=== PATIENT | female | born 1945 | race Caucasian/White ===

== ENCOUNTER → 2016-07-22 | Outpatient (CLI) | payer OTHER ==
[~2016-07-22] MED LIST: AMBIEN PO; ASPIRIN PO; CENTRUM SILVER PO; CIPRO PO; CLARINEX5 MG PO; DARVOCET-N 1001 TA1; DARVOCET-N 1001 TAB; DIGITEK PO; ENDOCET 10-3251 TAB PO; ENDOCET PO; ESTRACE42.5 GM VG; FLAXSEED OIL1000 M1 PO; GELNIQUE30 GM TD; GLUCOPHAGE500 MG PO; LANOXIN PO; LASIX PO; LIPITOR PO; LISINOPRIL; LISINOPRIL PO; LISINOPRIL10 MG PO; MICRO-K PO; MOBIC15 MG PO; OLUX50 GM TOP; PREDNISONE PO; PYRIDIUM PO; TOPROL XL; TOPROL XL PO; VESICARE5 MG PO; VITAMIN D 4001 UDTAB; VITAMIN D 4001 UDTAB PO; [UNRECOGNIZED DRUG - OTHER] PO
--- NOTE | ~2016-07-22 | MY11 ---
[facility] A Service of [facility] RADIOLOGY TEXT RESULTS PATIENT: RICH ODELL LOCATION: [facility] : 43 UNIT #: [id number] AGE: [address]: Teri Bhandari MD SEX: F ORDER DR: [id number] [facility] [address] [place], [place] [address] [id number] O MR#: [id number] Acc #: [id number] NAME: RICH ODELL : 1945 SEX: F STUDY DATE/TIME: 07/22/2016 11:46 UNIT: [facility] ROOM: STUDY DESCRIPTION: MY Mammogram Screening Dig Andrew Attending Physician: Teri Bhandari M.D. Referring Physician: Teri Bhandari M.D. Ordering Physician: Teri Bhandari M.D. Primary Care Physician: Teri Bhandari M.D. MEDICAL IMAGING REPORT This report is preliminary unless electronic signature is present EXAM Bilateral digital screening mammogram with CAD DATE 07/22/2016 HISTORY 70-year-old female with history of bilateral breast reduction surgery in 1988. No documented personal or family history of breast cancer or current complaints. COMPARISON Bilateral screening mammogram 11/25/2014, 11/24/2013, 10/29/2012. FINDINGS CC and MLO views were obtained of each breast utilizing digital technique and reviewed with an FDA-approved CAD device. Scattered fibroglandular densities are present bilaterally. Dense, coarse calcifications are seen within each breast, likely representing dystrophic calcifications, unchanged from prior examination. No suspicious cluster of microcalcifications are evident. Architectural distortion features are seen particularly within the right breast, thought to be related to reduction mammoplasty procedure. Scattered fibroglandular densities are again noted and appears stable. No new or suspicious nodule is identified. IMPRESSION 1. Benign findings. Routine screening mammogram recommended in 1 year. Patient's over the age of 40 are entered into a reminder system with target due date for the next mammogram. [facility] A Service [facility] RADIOLOGY TEXT RESULTS PATIENT: RICH ODELL LOCATION: [facility] : 43 UNIT #: [id number] AGE: [address]: Teri Bhandari MD SEX: F ORDER DR: BIRADS: 2 Benign findings Dictated by... Mariya Torres M.D. THIS IS AN ELECTRONICALLY VERIFIED REPORT Mariya Torres M.D. at 07/23/2016 7:08 AM MARGARET/sharif TD: 07/22/2016 15:15 JOB #: [id number] MEDICAL IMAGING REPORT Page 1 of 1 COPY
== END | disposition home or self-care (01) ==
LOC: CWCC 11:29
DX: Z12.31 Encounter for screening mammogram for malignant neoplasm of breast (principal); Z98.890 Other specified postprocedural states
CPT/HCPCS: G0202

== ENCOUNTER → 2016-09-16 | Outpatient (CLI) | payer OTHER ==
--- NOTE | ~2016-09-16 | CR63 ---
[facility] A Service of [facility] & [facility] RADIOLOGY TEXT RESULTS PATIENT: RICH ODELL LOCATION: [facility] : 43 UNIT #: [id number] AGE: [address]: Christine GuevaraP SEX: F ORDER DR: [id number] [facility] [address] [place], [place] [address] [id number] O MR#: [id number] Acc #: [id number] NAME: RICH ODELL : 1945 SEX: F STUDY DATE/TIME: 09/16/2016 10:57 UNIT: [facility] ROOM: STUDY DESCRIPTION: CR Chest 2 View Attending Physician: Christine Guevara A.P.R.N. Referring Physician: Christine Guevara A.P.R.N. Ordering Physician: Christine Guevara A.P.R.N. Primary Care Physician: Christine Guevara A.P.R.N. MEDICAL IMAGING REPORT This report is preliminary unless electronic signature is present EXAM Two-view chest INDICATION Chest pain. Abnormal physical exam. Crackles in the lung bases. Shortness of air with activity for 2-3 months. FINDINGS PA and lateral views of the chest are compared to 12/18/2011. Heart and mediastinal contours are unchanged. The heart is mildly enlarged. There is some chronic interstitial opacities in both lungs. These are unchanged from the prior study. No pleural effusion. IMPRESSION Mild cardiomegaly and chronic interstitial opacities. No new findings. Dictated by... Thony Kamara M.D. THIS IS AN ELECTRONICALLY VERIFIED REPORT Thony Kamara M.D. at 09/17/2016 9:15 AM Royer TD: 09/17/2016 08:11 JOB #: [id number] MEDICAL IMAGING REPORT Page 1 of 1 COPY
--- NOTE | ~2016-09-16 | BD1 ---
[facility] A Service of [facility] & [facility] RADIOLOGY TEXT RESULTS PATIENT: RICH ODELL LOCATION: [facility] : 43 UNIT #: [id number] AGE: [address]: Christine Guevara SEX: F ORDER DR: [id number] [facility] [address] [place], [place] [address] [id number] O MR#: [id number] Acc #: [id number] NAME: RICH ODELL : 1945 SEX: F STUDY DATE/TIME: 09/16/2016 10:31 UNIT: [facility] ROOM: STUDY DESCRIPTION: BD Dexa Bone Dens 1+ Site Attending Physician: Christine Guevara A.P.R.N. Referring Physician: Christine Guevara A.P.R.N. Ordering Physician: Christine Guevara A.P.R.N. Primary Care Physician: Christine Guevara A.P.R.N. MEDICAL IMAGING REPORT This report is preliminary unless electronic signature is present EXAM Bone densitometry, 09/16/2016. HISTORY 71-year-old postmenopausal female. FINDINGS The bone mineral density of the proximal right femoral neck is calculated at 0.506 g/cm2. This correlates with a T-score of -3.1 and a Z-score of -1.1. This is classified as osteoporosis. The bone mineral density of the distal left forearm is calculated at 0.589 g/cm2. This correlates to a T-score of -1.7 and a Z-score 0.6. This is classified as osteopenia. For trending purposes, there has been an 11.9% decrease in bone mineral density of the distal left forearm since the 2011 comparison. IMPRESSION 1. Osteoporosis. 2. Decreased bone mineral density of the distal left forearm since the 2010 comparison. Dictated by... Thony Kamara M.D. THIS IS AN ELECTRONICALLY VERIFIED REPORT Thony Kamara M.D. at 09/18/2016 6:52 AM BLANE/marquez TD: 09/17/2016 15:59 JOB #: [id number] [facility] A Service of [facility] & [facility] RADIOLOGY TEXT RESULTS PATIENT: RICH ODELL LOCATION: [facility] #: [id number] : 41 UNIT #: [id number] AGE: [address]: Christine Guevara SEX: F ORDER DR: MEDICAL IMAGING REPORT Page 1 of 1 COPY
--- NOTE | ~2016-09-16 | CR151 ---
[facility] A Service of [facility] & [facility] RADIOLOGY TEXT RESULTS PATIENT: RICH ODELL LOCATION: [facility] : 43 UNIT #: [id number] AGE: [address]: Christine GuevaraP SEX: F ORDER DR: [id number] [facility] [address] [place], [place] [address] [id number] O MR#: [id number] Acc #: [id number] NAME: RICH ODLEL : 1945 SEX: F STUDY DATE/TIME: 09/16/2016 11:08 UNIT: [facility] ROOM: STUDY DESCRIPTION: CR Hip Min 2 Views Rt Attending Physician: Christine Guevara A.P.R.N. Referring Physician: Christine Guevara A.P.R.N. Ordering Physician: Christine Guevara A.P.R.N. Primary Care Physician: Christine Guevara A.P.R.N. MEDICAL IMAGING REPORT This report is preliminary unless electronic signature is present EXAM Right hip INDICATION Right hip pain. Osteoporosis. FINDINGS AP view of the pelvis and frogleg lateral view of the right hip is compared to 10/16/2014. Patient has had a prior left total hip arthroplasty. Alignment of the arthroplasty is anatomic. There is moderate osteoarthritis of the right hip with superior joint space narrowing. There is some mild lateral osteophyte formation. No fracture. There are some degenerative changes of both sacroiliac joints and the pubic symphysis. IMPRESSION No new findings. Degenerative changes in the pelvis are similar to the prior study. Dictated by... Thony Kamara M.D. THIS IS AN ELECTRONICALLY VERIFIED REPORT Thony Kamara M.D. at 09/17/2016 9:15 AM BLANE/mackenzie TD: 09/17/2016 08:15 JOB #: [id number] MEDICAL IMAGING REPORT Page 1 of 1 COPY
== END | disposition home or self-care (01) ==
LOC: CWCC 09-04 13:00 → CRAD 10:08 → CWCC 10:08
DX: M81.0 Age-related osteoporosis without current pathological fracture (principal); M25.551 Pain in right hip; R09.89 Other specified symptoms and signs involving the circulatory and respiratory systems; I51.7 Cardiomegaly
CPT/HCPCS: 71020; 73502; 77080

== ENCOUNTER 2016-11-24 14:04 | Emergency (ER) | payer OTHER ==
[~2016-11-24] VITALS: Ht 165.1 cm; Wt 49.9 kg
--- NOTE | ~2016-11-24 | NM69 ---
[facility] A Service of [facility] RADIOLOGY TEXT RESULTS PATIENT: RICH ODELL LOCATION: [facility] : 43 UNIT #: [id number] AGE: [address]: Erlin Hough MD SEX: F ORDER DR: [id number] [facility] [address] [place], [place] [address] [id number] E MR#: [id number] Acc #: [id number] NAME: RICH ODELL. : 1945 SEX: F STUDY DATE/TIME: 11/24/2016 18:13 UNIT: [facility] ROOM: STUDY DESCRIPTION: NM Pulm Vent and Perf Attending Physician: Erlin Hough M.D. Ordering Physician: Erlin Hough M.D. Primary Care Physician: Christine Guevara A.P.R.N. MEDICAL IMAGING REPORT This report is preliminary unless electronic signature is present EXAM Ventilation perfusion lung scan. HISTORY Chest pain, on home O2. Chest pain started today, COMPARISON Portable chest 11/24/16. TECHNIQUE Ventilation-perfusion lung scan was formed utilizing standard 8 projections. Perfusion agent 6 mCi technetium 99m MAA and the ventilation agent was 36 mCi technetium 99m DTPA aerosol. FINDINGS Examination demonstrates multiple matched ventilation-perfusion lung defects. No ventilation-perfusion mismatch identified. Decreased perfusion in the right lung base secondary to right-sided volume loss and elevation right hemidiaphragm. Mild central deposition of the radiopharmaceutical on the ventilation portion of the study suggests some small airway disease. IMPRESSION Multiple matched ventilation-perfusion lung defects. No ventilation-perfusion mismatch identified. Study is considered low probability for pulmonary embolus. Dictated by... Melissa Mchugh M.D. THIS IS AN ELECTRONICALLY VERIFIED REPORT Melissa Mchugh M.D. at 11/26/2016 3:15 PM JMS/concha [facility] A Service of [facility] & [facility] RADIOLOGY TEXT RESULTS PATIENT: RICH ODELL LOCATION: [facility] : 43 UNIT #: [id number] AGE: [address]: Erlin Hough MD SEX: F ORDER DR: TD: 11/25/2016 10:54 JOB #: [id number] MEDICAL IMAGING REPORT Page 1 of 1 COPY
--- NOTE | ~2016-11-24 | CR72 ---
[facility] A Service of [facility] & [facility] RADIOLOGY TEXT RESULTS PATIENT: RICH ODELL LOCATION: [facility] : 43 UNIT #: [id number] AGE: [address]: Erlin Hough MD SEX: F ORDER DR: [id number] [facility] [address] [place], [place] [address] [id number] E MR#: [id number] Acc #: [id number] NAME: RICH ODELL : 1945 SEX: F STUDY DATE/TIME: 11/24/2016 14:46 UNIT: [facility] ROOM: STUDY DESCRIPTION: CR Chest Single View Portable Attending Physician: Erlin Hough M.D. Ordering Physician: Erlin Hough M.D. Primary Care Physician: Christine Guevara A.P.R.N. MEDICAL IMAGING REPORT This report is preliminary unless electronic signature is present EXAM Portable chest HISTORY Chest pain, shortness of air. FINDINGS Portable view of the chest demonstrates low lung volumes. Cardiomegaly with mild prominence of the pulmonary vascularity could represent mild CHF though I suspect this is more likely indicative of chronic lung disease. No acute airspace disease or consolidation. No effusions. Diffuse aortic atherosclerotic changes. Postsurgical changes noted in the cervical spine from multilevel posterior spinal fixation. Dictated by... Melissa Mchugh M.D. THIS IS AN ELECTRONICALLY VERIFIED REPORT Melissa Mchugh M.D. at 11/25/2016 10:03 AM HERMINIO/naldo TD: 11/25/2016 09:27 JOB #: [id number] MEDICAL IMAGING REPORT Page 1 of 1 COPY
--- NOTE | ~2016-11-24 | EKG ---
PATIENT: RICH ODELL UNIT #: [id number] Ventricular Rate: 74 BPM Atrial Rate: 74 BPM P-R Interval: 138 ms QRS Duration: 92 ms Q-T Interval: 404 ms QTC Calculation(Bezet): 448 ms P [place]: 53 degrees Calculated R [place]: 4 degrees Calculated T [place]: 48 degrees Diagnosis Line: Normal sinus rhythm Diagnosis Line: Possible Inferior infarct (cited on or before Diagnosis Line: 25-OCT-2010) Diagnosis Line: Abnormal ECG Diagnosis Line: When compared with ECG of 25-OCT-2010 19:57, Diagnosis Line: Premature atrial complexes are no longer Present Diagnosis Line: Nonspecific T wave abnormality now evident in Diagnosis Line: Lateral leads Diagnosis Line: QT has lengthened Diagnosis Line: Confirmed by VANGIE JONES MD ([id number]) on Diagnosis Line: 11/25/2016 8:04:22 AM INTERPRETING MD: ROBERT BAL
[2016-11-24 15:09] LABS: POC - CKMB 2.9 ng/mL (0.0-7.9); POC - TROPONIN <0.05 ng/mL (<=0.05)
[2016-11-24 15:18] LABS: BASOPHIL# 0.1 X10e3 (0-0.3); BASOPHIL% 0.9 % (0-2.5); EOSINOPHIL# 0.5 X10e3 (0-0.7); EOSINOPHIL% 6.1 % (0.0-7.0); HEMOGLOBIN 12.6 gm/dL (12.0-16.0); LYMPHOCYTE# 1.3 X10e3 (1.0-3.5); LYMPHOCYTE% 17.9 % (17.0-45.0); MEAN CELL VOLUME 88.6 FL (83-96); MEAN CORPUSCULAR HEMOGLOBIN 30.2 PG (28-34); MEAN PLATELET VOLUME 7.7 FL (6.5-11.5); MONOCYTE# 0.7 X10e3 (0-1.0); MONOCYTE% 9.4 % (3.0-12.0); NEUTROPHIL# 4.9 X10e3 (1.5-7.1); NEUTROPHIL% 65.7 % (40-75); PLATELET COUNT 287 X10e3 (140-420); RED BLOOD COUNT 4.18 X10e (3.90-5.30); RED CELL DISTRIBUTION WIDTH 14.7 % (11.0-15.5); WHITE BLOOD COUNT 7.4 X10e3 (4.0-10.5)
[2016-11-24 15:20] LABS: DIFF IND NO
[2016-11-24 15:29] LABS: PARTIAL THROMBOPLASTIN TIME 23.3 SECONDS (23.5-31.3); PROTHROMBIN TIME (PATIENT) 10.7 SECONDS (10.0-11.7)
[2016-11-24 15:40] LABS: ALBUMIN SERUM 4.5 g/dL (3.5-5.0); ALKALINE PHOSPHATASE 78 U/L (32-92); ALT (SGPT) 12 U/L (10-40); AST (SGOT) 22 U/L (10-42); BILIRUBIN, DIRECT <0.1 mg/dL (0.0-0.2); BILIRUBIN,INDIRECT 0.3 mg/dL (0.0-0.9); BILIRUBIN,TOTAL 0.4 mg/dL (0.2-2.0); BLOOD UREA NITROGEN 30 mg/dL (9-23); BUN/CREATININE RATIO 23.07; CALCIUM SERUM 9.6 mg/dL (8.4-10.2); CARBON DIOXIDE 32 mmol/L (22-31); CHLORIDE 95 mmol/L (100-111); CREATININE SERUM 1.3 mg/dL (0.6-1.4); GLOM FILT RATE Estimated 40.7 mL/min (>60); GLUCOSE FASTING 93 mg/dL (70-110); POTASSIUM 4.2 mmol/L (3.5-5.1); PROTEIN TOTAL SERUM 9.4 g/dL (6.0-8.3); SODIUM 138 mmol/L (135-145)
== END 2016-11-24 19:02 | disposition home or self-care (01) ==
LOC: CED 14:04
PROVIDERS: Emergency Medicine
DX: R07.9 Chest pain, unspecified (principal); E78.5 Hyperlipidemia, unspecified; I10 Essential (primary) hypertension; G89.29 Other chronic pain; J44.9 Chronic obstructive pulmonary disease, unspecified; Z88.8 Allergy status to other drugs, medicaments and biological substances
CPT/HCPCS: 36415; 71010; 78582; 80048; 80076; 82553; 83880; 84484; 85025; 85379; 85610; 85730; 93005; 99285; A9540; A9567; J2405